=== PATIENT | male | born 1935 | race Caucasian/White ===

== ENCOUNTER 2021-12-05 18:51 | Inpatient (IN) ==
[2021-12-05] MEDS ORDERED: Ondansetron ODT 4 MG TAB.RAPDIS SL PRN (21:53)
[2021-12-05] MEDS ORDERED: Naloxone 0.4 MG/ML INJ IVP PRN (21:53)
[2021-12-05] MEDS ORDERED: Melatonin 3 MG TABLET PO PRN (21:53)
[2021-12-05] MEDS ORDERED: Piperacillin/Tazobactam 3.375 GM in 0.9 % Sodium Chloride Mini Bag 100 ML IVPB SCH (22:08)
[2021-12-05 22:11] LABS: ABG Base Excess -17 mEq/L (-2 to 3); ABG HCO3 10 mEq/L (21-27); ABG Oxygen Saturation 82 % (95-98); ABG PCO2 25 mmHg (35-45); ABG PH 7.19 pH Units (7.32-7.45); ABG PO2 56 mmHg (85-104); ABG TCO2 10 mEq/L (20-26); Blood Gas Pressure Support 7 cm H2O
[2021-12-05 22:22] LABS: Hematocrit 50.4 % (37.5-50.1); Hemoglobin 15.5 g/dL (12.9-16.9); Mean Corpuscular HGB Conc 30.8 g/dL (31.6-35.5); Mean Corpuscular Hemoglobin 30.6 pg (28.0-33.3); Mean Corpuscular Volume 99.6 fL (83.0-100.0); Mean Platelet Volume 10.7 fL (9.4-12.4); Nucleated Red Blood Cells 0.2 /100 WBC (0); Platelet Count 274 K/mcL (140-400); Red Blood Count 5.06 M/mcL (4.19-5.50); Red Cell Distribution Width 17.2 % (11.5-14.5); White Blood Count 17.3 K/mcL (4.3-11.1)
[2021-12-05 22:43] LABS: INR 1.3; Prothrombin Time 14.6 Seconds (9.4-12.1)
[2021-12-05] MEDS ORDERED: Vancomycin 1,500 MG/265 ML IV.SOLN IVPB ONE (23:00)
[2021-12-05] MEDS ORDERED: *HR* Heparin 5,000 UNIT/ML VIAL IVP PRN ×2 (23:07)
[2021-12-05] MEDS ORDERED: *HR* Heparin 5,000 UNIT/ML VIAL IVP ONE (23:07)
[2021-12-05 23:11] LABS: Albumin 3.4 g/dL (3.5-5.7); Albumin/Globulin Ratio 1.2 (1.1-2.2); Bilirubin,Total 0.5 mg/dL (0.3-1.0); Calcium 9.3 mg/dL (8.6-10.3); Globulin 2.8 g/dL (2.4-3.5); Magnesium 1.7 mg/dL (1.6-2.6); Phosphorous 4.4 mg/dL (2.7-4.5); Potassium 4.7 mEq/L (3.5-5.1); Total Protein 6.2 g/dL (6.4-8.9); Troponin I 0.42 ng/mL (< 0.04)
[2021-12-05] MEDS ORDERED: Heparin 25,000UNIT/250ML 1/2NS 25,000 UNIT/250 ML IV.SOLN IVC SCH (23:15)
[2021-12-05] MEDS: Piperacillin/Tazobactam 3.375 GM in 0.9 % Sodium Chloride Mini Bag 100 ML IVPB SCH (23:23)
[2021-12-05 23:49] LABS: Neutrophils # 11.6 K/mcL (1.6-8.9)
[2021-12-05 23:50] LABS: Lymphocytes # 0.7 K/mcL (0.6-4.6); Monocytes # 1.6 K/mcL (0.0-1.3)
[2021-12-05 23:51] LABS: Eosinophils # 0.2 K/mcL (0.0-0.6)
[2021-12-05 23:53] LABS: Platelet Estimate Normal (Normal)
[2021-12-05] MEDS ORDERED: Morphine Sulfate 2 MG/ML SYRINGE IVP PRN (23:53)
[2021-12-05] MEDS ORDERED: D5% in Water 1,000 ML IVC PRN (23:59)
[2021-12-05] MEDS ORDERED: *HR* Dextrose 50 % in Water (Syg) 50 ML SYRINGE IVP PRN (23:59)
[2021-12-05] MEDS ORDERED: Dextrose Gel 15 GM/37.5 ML TUBE PO PRN ×2 (23:59)
[2021-12-06] MEDS: Sodium Bicarbonate 150 MEQ in D5% in Water 1,000 ML IVC SCH ×2 (00:04→12:09)
[2021-12-06] MEDS ORDERED: Perflutren Lipid Microsphere 1.3 ML in 0.9 % Sodium Chloride 8.7 ML IVP PRN (00:13)
[2021-12-06 00:32] LABS: Adenovirus Not Detected (Not Detect)
[2021-12-06 00:33] LABS: Bordetella Pertussis Not Detected (Not Detect); Chlamydophila pneumoniae Not Detected (Not Detect); Coronavirus 229E Not Detected (Not Detect); Coronavirus HKU1 Not Detected (Not Detect); Coronavirus NL63 Not Detected (Not Detect); Coronavirus OC43 Not Detected (Not Detect); Human Metapneumovirus Not Detected (Not Detect); Human Rhinovirus/Enterovirus Not Detected (Not Detect); Influenza A Subtype 2009 H1 Not Detected (Not Detect); Influenza B Not Detected (Not Detect); Mycoplasma pneumoniae Not Detected (Not Detect); Parainfluenza Virus 1 Not Detected (Not Detect); Parainfluenza Virus 2 Not Detected (Not Detect); Parainfluenza Virus 3 Not Detected (Not Detect); Parainfluenza Virus 4 Not Detected (Not Detect); Respiratory Syncytial Virus Not Detected (Not Detect); SARS-CoV-2 Not Detected (Not Detect)
[2021-12-06] MEDS: Insulin LISPRO 300 UNITS/3 ML VIAL SUBQ SCH ×3 (01:49→12:40)
[2021-12-06 03:13] LABS: Basophils % 0.1 %; Eosinophils # 0.2 K/mcL (0.0-0.6); Eosinophils % 1.3 %; Hematocrit 48.1 % (37.5-50.1); Hemoglobin 15.2 g/dL (12.9-16.9); Immature Granulocytes % 0.8 % (0-4); Lymphocytes # 1.2 K/mcL (0.6-4.6); Mean Corpuscular HGB Conc 31.6 g/dL (31.6-35.5); Mean Corpuscular Hemoglobin 30.8 pg (28.0-33.3); Mean Corpuscular Volume 97.4 fL (83.0-100.0); Mean Platelet Volume 10.8 fL (9.4-12.4); Monocytes # 1.8 K/mcL (0.0-1.3); Monocytes % 10.6 %; Neutrophils # 13.6 K/mcL (1.6-8.9); Nucleated Red Blood Cells 0.5 /100 WBC (0); Platelet Count 223 K/mcL (140-400); Red Blood Count 4.94 M/mcL (4.19-5.50); Red Cell Distribution Width 16.9 % (11.5-14.5); Segmented Neutrophils % 80.2 %
[2021-12-06 03:49] LABS: Potassium 4.5 mEq/L (3.5-5.1)
[2021-12-06] MEDS ORDERED: *HR* Metoprolol 5 MG/5 ML VIAL IVP ONE (03:56)
[2021-12-06 04:13] LABS: ABG Base Excess -14 mEq/L (-2 to 3); ABG HCO3 10 mEq/L (21-27); ABG Oxygen Saturation 96 % (95-98); ABG PCO2 20 mmHg (35-45); ABG PO2 84 mmHg (85-104); ABG TCO2 11 mEq/L (20-26); Blood Gas Pressure Support 7 cm H2O
[2021-12-06 04:17] LABS: Albumin 3.2 g/dL (3.5-5.7); Albumin/Globulin Ratio 1.3 (1.1-2.2); Bilirubin,Total 0.7 mg/dL (0.3-1.0); Globulin 2.4 g/dL (2.4-3.5); Total Protein 5.6 g/dL (6.4-8.9)
[2021-12-06] MEDS: *HR* LORazepam 2 MG/ML VIAL IVP PRN ×2 (05:14→11:17)
[2021-12-06] MEDS ORDERED: MethylPREDNISolone 40 MG/ML VIAL IVP SCH (06:00)
[2021-12-06] MEDS: *HR* Metoprolol 5 MG/5 ML VIAL IVP PRN ×2 (06:34→11:03)
[2021-12-06 07:17] LABS: Platelet Estimate Normal (Normal)
[2021-12-06] MEDS: Piperacillin/Tazobactam 3.375 GM in 0.9 % Sodium Chloride Mini Bag 100 ML IVPB SCH (11:07)
[2021-12-06 11:33] VITALS: BP 87/45; PULSE 117; TEMP 101.2; O2SAT 90
[2021-12-06 13:27] LABS: % Iron Saturation 6 % (20-55); Acetaminophen < 10 mcg/mL (10-20); BUN/Creatinine Ratio 20 (6-26); Blood Urea Nitrogen 101 mg/dL (8-23); Calcium 8.8 mg/dL (8.6-10.3); Carbon Dioxide 7 mEq/L (23-29); Chloride 109 mEq/L (98-107); Ethanol < 10 mg/dL (Less than 10); Ferritin 649 ng/mL (20-250); Glucose 155 mg/dL (70-105); Iron 12 mcg/dL (65-175); Osmolality,Calculated 331 (280-300); Phosphorous 5.1 mg/dL (2.7-4.5); Potassium 5.4 mEq/L (3.5-5.1); Salicylate < 2.5 mg/dL (15.0-30.0); Sodium 143 mEq/L (136-145); Transferrin 149 mg/dL (203-362); eGFR For African Americans 13 (> 60); eGFR For Non-African Americans 11 (> 60)
[2021-12-06 13:35] LABS: Folate 11.4 ng/mL (3.0-16.0)
[2021-12-06] MEDS ORDERED: *HR* HYDROmorphone 2 MG/ML SYRINGE IVP ONE (14:29)
[2021-12-06] MEDS ORDERED: *HR* LORazepam 2 MG/ML VIAL IVP ONE ×2 (14:33→14:48)
[2021-12-06] MEDS ORDERED: *HR* HYDROmorphone 2 MG/ML SYRINGE IVP PRN (14:39)
[2021-12-06] MEDS ORDERED: Scopolamine Patch 1.5 MG PATCH.TD72 TD SCH (14:45)
[2021-12-06] MEDS ORDERED: Glycopyrrolate 0.2 MG/ML VIAL IVP PRN (14:56)
[2021-12-06] MEDS ORDERED: *HR* LORazepam 2 MG/ML VIAL IVP PRN (16:00)
[2021-12-06] MEDS ORDERED: *HR* LORazepam 2 MG/ML VIAL IVP SCH (18:00)
[2021-12-06] MEDS ORDERED: *HR* HYDROmorphone (PF) 1 MG/ML SYRINGE IVP SCH (20:00)
== END 2021-12-06 17:30 | disposition expired | DRG 871 ==
LOC: 2NNU → SUATTDRO 22:00
PROVIDERS: ADMIT Family Medicine; ATTEND Family Medicine